=== PATIENT | male | born 1990 | race Caucasian/White ===

== ENCOUNTER 2025-07-06 08:00 | Outpatient (RCR) | payer BC, SELFPAY | END 2025-07-06 23:59 | disposition home or self-care (01) | LOC: PT.CARL 08:00 | PROVIDERS: Visit Provider Family Medicine | DX: S83.411A Sprain of medial collateral ligament of right knee, initial encounter (principal); M17.11 Unilateral primary osteoarthritis, right knee | CPT/HCPCS: 97110; 97112; 97161; 97530 ==

== ENCOUNTER 2025-08-10 08:00 | Outpatient (RCR) | payer BC, SELFPAY | END 2025-08-10 10:42 | disposition home or self-care (01) | LOC: PT.CARL 08:00 | PROVIDERS: Visit Provider Family Medicine | DX: S83.411A Sprain of medial collateral ligament of right knee, initial encounter (principal); M17.11 Unilateral primary osteoarthritis, right knee | CPT/HCPCS: 97110; 97112; 97164; 97530 ==